=== PATIENT | male | born 1955 | race Caucasian/White ===

== ENCOUNTER 2017-12-01 22:37 | Emergency (ER) | payer MEDICARE, OTHER ==
[~2017-12-01] VITALS: Ht 170.2 cm; Wt 72.8 kg
[~2017-12-01 22:37] MED LIST: CLOZ100 PO; FERR-89 PO; LEVO125T4 PO; PRAV40TA4 PO
[2017-12-01 22:54] LABS: GLUCOSE,POINT OF CARE 138 MG/DL (70-110)
[2017-12-01] MEDS ORDERED: TAMS0.4C32 PO (23:00)
[2017-12-01] MEDS ORDERED: OMEP20 PO (23:00)
[2017-12-01] MEDS ORDERED: LORA2TAB2 PO (23:00)
[2017-12-01 23:22] LABS: BASOPHILS % (AUTO) 0.7 % (0.0-2.0); EOSINOPHILS % (AUTO) 0 % (1.0-6.0); HEMOGLOBIN 13.2 g/dL (13.5-17.5); LYMPHOCYTES # (AUTO) 0.9 K/uL (1.0-4.8); LYMPHOCYTES % (AUTO) 18.1 % (22.0-44.0); MEAN CORPUSCULAR HEMOGLOBIN 29.4 pg (26.0-34.0); MEAN CORPUSCULAR HGB CONC 33.8 G/dL (31.0-37.0); MEAN CORPUSCULAR VOLUME 87 fL (80-100); MONOCYTES # (AUTO) 0.4 K/uL (0.1-1.0); MONOCYTES % (AUTO) 7.9 % (2.0-9.0); NEUTROPHILS # (AUTO) 3.7 K/uL (1.8-7.7); NEUTROPHILS % (AUTO) 73.3 % (40.0-70.0); PLATELET COUNT (AUTO) 178 K/uL (150-450); RED BLOOD CELL COUNT(AUTO) 4.48 MIL/uL (4.50-5.90); RED CELL DISTRIBUTION WIDTH 14.7 % (11.5-14.5)
[2017-12-01 23:32] LABS: ANION GAP 8 mmol/L (8-16); CARBON DIOXIDE 31 mmol/L (22-29); CHLORIDE 101 mmol/L (98-107); CREATININE 1.52 mg/dL (0.60-1.30); GLOMERULAR FILTR. RATE CALC 47 mL/min (>60); GLUCOSE,RANDOM 147 mg/dL (70-110); POTASSIUM 3.6 mmol/L (3.5-5.1); SODIUM SERUM 140 mmol/L (136-145); UREA NITROGEN, BLOOD 15 mg/dL (7-18)
[2017-12-01 23:38] LABS: ALANINE AMINOTRANSFERASE 14 U/L (12-78); ALKALINE PHOSPHATASE 83 U/L (46-116); ASPARTATE AMINOTRANSFERASE 15 U/L (15-37); BILIRUBIN,TOTAL 0.6 mg/dL (0.1-1.0); TOTAL PROTEIN, SERUM 7.7 g/dL (6.4-8.2)
[2017-12-01 23:50] LABS: AMPHET/METH SCREEN,URINE NEGATIVE (NEGATIVE); BARBITURATE SCREEN, URINE NEGATIVE (NEGATIVE); BENZODIAZEPINES SCREEN,URINE NEGATIVE (NEGATIVE); CANNABINOID SCREEN,URINE NEGATIVE (NEGATIVE); COCAINE SCREEN,URINE NEGATIVE (NEGATIVE); METHADONE SCREEN, URINE NEGATIVE (NEGATIVE); OPIATE SCREEN,URINE NEGATIVE (NEGATIVE); PHENCYCLIDINE SCREEN,URINE NEGATIVE (NEGATIVE)
[2017-12-02] MEDS: DiphenhydrAMINE HCL 50 MG/ML VIAL IM ONE (00:34)
[2017-12-02 01:20] VITALS: BP 134/74
== END 2017-12-02 01:20 | disposition home or self-care (01) ==
LOC: EMS 22:38
DX: F20.9 Schizophrenia, unspecified (principal); Z79.899 Other long term (current) drug therapy
CPT/HCPCS: 36415; 70450; 80053; 80307; 82962; 85025; 99285; G0480

== ENCOUNTER 2018-04-15 14:39 | Inpatient (IN) | payer MEDICARE, MEDICAID ==
[~2018-04-15] VITALS: Ht 177.8 cm; Wt 66.9 kg
[~2018-04-15 14:39] MED LIST changes: +LORA2TAB2 PO; +OMEP20 PO; +TAMS0.4C32 PO
[2018-04-15 15:53] VITALS: BP 149/75
[2018-04-15 16:08] VITALS: BP 150/77
[2018-04-15] MEDS: LORazepam 1 MG TABLET PO PRN (16:31)
[2018-04-15] MEDS ORDERED: GuaiFENesin/D-METHORPHAN [SUGAR-FREE] 200-20MG/10 ML SYRUP UDCUP PO PRN (18:45)
[2018-04-15] MEDS ORDERED: MAG HYDROX/AL HYDROX/SIMETH ES 30 ML SUSPENSION UDCUP PO PRN (18:45)
[2018-04-15] MEDS ORDERED: PETROLATUM,WHITE 71 GM JELLY TP PRN (18:45)
[2018-04-15] MEDS ORDERED: LOPERAMIDE HCL 2 MG CAPSULE PO PRN (18:45)
[2018-04-15] MEDS ORDERED: CloNIDine HCL 0.1 MG TABLET PO PRN (18:45)
[2018-04-15] MEDS ORDERED: IBUPROFEN 400 MG TABLET PO PRN (18:45)
[2018-04-15] MEDS ORDERED: MAGNESIUM HYDROXIDE SUSPENSION 30 ML UDCUP PO PRN (18:45)
[2018-04-15] MEDS ORDERED: ONDANSETRON HCL 4 MG TABLET PO PRN (18:45)
[2018-04-15] MEDS ORDERED: NICOTINE 14 MG/24 HOUR PATCH TD PRN (18:45)
[2018-04-15] MEDS ORDERED: ALBUTEROL SULFATE HFA 90 MCG/PUFF 8 GM INHALER IH PRN (18:45)
[2018-04-15] MEDS ORDERED: DOCUSATE SODIUM 100 MG CAPSULE PO PRN (18:45)
[2018-04-15] MEDS ORDERED: ACETAMINOPHEN 325 MG TABLET PO PRN (18:45)
[2018-04-15] MEDS: TAMSULOSIN HCL 0.4 MG CAPSULE PO SCH (21:35)
[2018-04-15] MEDS: ZOLPIDEM TARTRATE 10 MG TABLET PO PRN (21:35)
[2018-04-15] MEDS: PRAVASTATIN SODIUM 40 MG TABLET PO SCH (21:35)
[2018-04-16 00:02] VITALS: BP 141/70
[2018-04-16] MEDS: HALOPERIDOL 5 MG TABLET PO PRN ×3 (00:03→17:41)
[2018-04-16] MEDS: LORazepam 1 MG TABLET PO PRN ×3 (00:03→17:41)
[2018-04-16] MEDS: FERROUS SULFATE 325 MG EC TABLET PO SCH (06:40)
[2018-04-16] MEDS: LEVOTHYROXINE SODIUM 125 MCG TABLET PO SCH (06:40)
[2018-04-16 08:33] LABS: BASOPHILS % (AUTO) 0.4 % (0.0-2.0); EOSINOPHILS % (AUTO) 0.1 % (1.0-6.0); HEMATOCRIT 40.7 % (41-53); HEMOGLOBIN 13.5 g/dL (13.5-17.5); MEAN CORPUSCULAR HEMOGLOBIN 29.2 pg (26.0-34.0); MEAN CORPUSCULAR HGB CONC 33.2 G/dL (31.0-37.0); MEAN CORPUSCULAR VOLUME 88 fL (80-100); MONOCYTES # (AUTO) 0.5 K/uL (0.1-1.0); MONOCYTES % (AUTO) 8.7 % (2.0-9.0); NEUTROPHILS # (AUTO) 4.6 K/uL (1.8-7.7); NEUTROPHILS % (AUTO) 74.8 % (40.0-70.0); PLATELET COUNT (AUTO) 263 K/uL (150-450); RED BLOOD CELL COUNT(AUTO) 4.63 MIL/uL (4.50-5.90); RED CELL DISTRIBUTION WIDTH 14.8 % (11.5-14.5)
[2018-04-16] MEDS: OMEPRAZOLE 20 MG CAPSULE PO SCH (09:01)
[2018-04-16 09:15] LABS: ALBUMIN 4.2 g/dL (3.4-5.0); BILIRUBIN,TOTAL 0.7 mg/dL (0.1-1.0); CALCIUM, TOTAL 10.1 mg/dL (8.8-10.5); CHOL/HDL RATIO 1.8 (4.2-7.3); CREATININE 1.48 mg/dL (0.60-1.30); FREE T4 (FREE THYROXINE) 1.39 ng/dL (0.76-1.46); TOTAL PROTEIN, SERUM 8.5 g/dL (6.4-8.2)
[2018-04-16 09:27] VITALS: BP 140/69
[2018-04-16 18:38] VITALS: BP 140/93
[2018-04-16 20:32] VITALS: BP_SYST 150; BP_SYST 170; BP_DIAS 99
[2018-04-16] MEDS: PRAVASTATIN SODIUM 40 MG TABLET PO SCH (21:32)
[2018-04-16] MEDS: TAMSULOSIN HCL 0.4 MG CAPSULE PO SCH (21:32)
[2018-04-16] MEDS: CloZAPine 100 MG TABLET PO SCH (21:33)
[2018-04-17 01:00] VITALS: BP 138/79
[2018-04-17] MEDS: HALOPERIDOL 5 MG TABLET PO PRN (01:16)
[2018-04-17] MEDS: LORazepam 1 MG TABLET PO PRN ×2 (01:16→09:19)
[2018-04-17] MEDS: ZOLPIDEM TARTRATE 10 MG TABLET PO PRN (02:35)
[2018-04-17] MEDS: LEVOTHYROXINE SODIUM 125 MCG TABLET PO SCH (06:28)
[2018-04-17] MEDS: FERROUS SULFATE 325 MG EC TABLET PO SCH (06:37)
[2018-04-17 06:48] VITALS: BP 159/78
[2018-04-17] MEDS ORDERED: CloZAPine 100 MG TABLET PO SCH (09:00)
[2018-04-17] MEDS: OMEPRAZOLE 20 MG CAPSULE PO SCH (09:19)
[2018-04-17 12:01] VITALS: BP 128/80
[2018-04-17 20:18] VITALS: BP 121/70
[2018-04-17] MEDS: CloZAPine 100 MG TABLET PO SCH (21:00)
[2018-04-17] MEDS: TAMSULOSIN HCL 0.4 MG CAPSULE PO SCH (21:00)
[2018-04-17] MEDS: PRAVASTATIN SODIUM 40 MG TABLET PO SCH (21:00)
== END 2018-04-18 01:27 | disposition short-term general hospital (02) | DRG 885 ==
LOC: B2X 15:32
PROVIDERS: ADMIT Psychiatry & Neurology Child & Adolescent Psychiatry; ATTEND Psychiatry & Neurology Child & Adolescent Psychiatry
DX: F20.9 Schizophrenia, unspecified (principal); G93.41 Metabolic encephalopathy; N17.9 Acute kidney failure, unspecified; K21.9 Gastro-esophageal reflux disease without esophagitis; N40.0 Benign prostatic hyperplasia without lower urinary tract symptoms; E03.9 Hypothyroidism, unspecified; E78.5 Hyperlipidemia, unspecified; D64.9 Anemia, unspecified; F99 Mental disorder, not otherwise specified; R62.50 Unspecified lack of expected normal physiological development in childhood; N18.9 Chronic kidney disease, unspecified
CPT/HCPCS: 83036; 84436; 84439; 84443

== ENCOUNTER 2018-04-17 12:47 | Emergency (ER) | payer OTHER ==
[~2018-04-17] VITALS: Ht 172.7 cm; Wt 70.0 kg
[2018-04-17 14:02] LABS: GLUCOSE,POINT OF CARE 111 MG/DL (70-110)
[2018-04-17 14:27] LABS: BASOPHILS % (AUTO) 0.8 % (0.0-2.0); EOSINOPHILS % (AUTO) 0.3 % (1.0-6.0); HEMATOCRIT 41.4 % (41-53); HEMOGLOBIN 13.6 g/dL (13.5-17.5); LYMPHOCYTES # (AUTO) 1.1 K/uL (1.0-4.8); LYMPHOCYTES % (AUTO) 19.1 % (22.0-44.0); MEAN CORPUSCULAR HEMOGLOBIN 29.3 pg (26.0-34.0); MEAN CORPUSCULAR HGB CONC 32.8 G/dL (31.0-37.0); MEAN CORPUSCULAR VOLUME 89 fL (80-100); MONOCYTES # (AUTO) 0.5 K/uL (0.1-1.0); MONOCYTES % (AUTO) 8.8 % (2.0-9.0); PLATELET COUNT (AUTO) 228 K/uL (150-450); RED BLOOD CELL COUNT(AUTO) 4.63 MIL/uL (4.50-5.90); RED CELL DISTRIBUTION WIDTH 14.9 % (11.5-14.5)
[2018-04-17 14:44] LABS: ANION GAP 12 mmol/L (8-16); CALCIUM, TOTAL 10.2 mg/dL (8.8-10.5); CARBON DIOXIDE 29 mmol/L (22-29); CHLORIDE 106 mmol/L (98-107); CREATININE 1.34 mg/dL (0.60-1.30); GLOMERULAR FILTR. RATE CALC 54 mL/min (>60); GLUCOSE,RANDOM 95 mg/dL (70-110); POTASSIUM 3.9 mmol/L (3.5-5.1); SODIUM SERUM 147 mmol/L (136-145); UREA NITROGEN, BLOOD 31 mg/dL (7-18)
[2018-04-17 14:50] LABS: ALANINE AMINOTRANSFERASE 49 U/L (12-78); ALKALINE PHOSPHATASE 86 U/L (46-116); ASPARTATE AMINOTRANSFERASE 92 U/L (15-37); BILIRUBIN,TOTAL 0.8 mg/dL (0.1-1.0); TOTAL PROTEIN, SERUM 7.8 g/dL (6.4-8.2)
[2018-04-17] MEDS ORDERED: LORazepam 2 MG/ML VIAL IVP ONE (15:00)
[2018-04-17 17:32] LABS: APPEARANCE,URINE CLEAR (CLEAR); BILIRUBIN,URINE NEGATIVE (NEGATIVE); GLUCOSE, URINE (UA) NEGATIVE (NEGATIVE); KETONES,URINE 15 mg/dL (NEGATIVE); LEUKOCYTE ESTERASE ,URINE NEGATIVE (NEGATIVE); NITRATE,URINE NEGATIVE (NEGATIVE); OCCULT BLOOD,URINE NEGATIVE (NEGATIVE); PH,URINE 5.5 (5.0-8.0); PROTEIN,URINE TRACE (NEGATIVE); UROBILINOGEN,URINE 0.2 mg/dL (<=1.0)
[2018-04-17 17:36] LABS: AMPHET/METH SCREEN,URINE NEGATIVE (NEGATIVE); BACTERIA,URINE Rare /HPF (None Seen); BARBITURATE SCREEN, URINE NEGATIVE (NEGATIVE); BENZODIAZEPINES SCREEN,URINE NEGATIVE (NEGATIVE); CANNABINOID SCREEN,URINE NEGATIVE (NEGATIVE); COCAINE SCREEN,URINE NEGATIVE (NEGATIVE); METHADONE SCREEN, URINE NEGATIVE (NEGATIVE); OPIATE SCREEN,URINE NEGATIVE (NEGATIVE); RBC,URINE 0-2 /HPF (0-2); SQUAMOUS EPITHELIAL CELL,UR Few /LPF (None Seen); WBC,URINE 0-2 /HPF (0-5)
[2018-04-17 17:37] LABS: PHENCYCLIDINE SCREEN,URINE NEGATIVE (NEGATIVE)
[2018-04-17] MEDS ORDERED: 0.9% SODIUM CHLORIDE 10 ML SYRINGE IVP PRN ×2 (18:30→18:45)
[2018-04-17] MEDS ORDERED: LEVOFLOXACIN 500 MG/D5% WATER 100 ML IV ONE (18:30)
[2018-04-17] MEDS ORDERED: ACETAMINOPHEN 325 MG TABLET PO PRN (18:45)
[2018-04-17 22:27] VITALS: BP 127/72
== END 2018-04-17 23:29 | disposition other institution (70) ==
LOC: EMS 12:48
DX: J69.0 Pneumonitis due to inhalation of food and vomit (principal); R41.82 Altered mental status, unspecified; E03.9 Hypothyroidism, unspecified; K21.9 Gastro-esophageal reflux disease without esophagitis; F20.9 Schizophrenia, unspecified; Z79.899 Other long term (current) drug therapy
CPT/HCPCS: 36415; 70450; 71045; 80053; 80307; 81001; 82140; 82962; 83605; 85025; 87040; 96365; 96375; 99285; G0480; J1956; J2060

== ENCOUNTER 2019-08-15 22:45 | Inpatient (IN) | payer MEDICARE, OTHER ==
[~2019-08-15] VITALS: Ht 172.7 cm; Wt 65.3 kg
[~2019-08-15 22:45] MED LIST changes: -CLOZ100 PO; +CLOZ100T32 PO; +LORA-1001 PO; -LORA2TAB2 PO; +TAMS-13 PO; -TAMS0.4C32 PO
[2019-08-15] MEDS ORDERED: HALO50VI4 IM (23:01)
[2019-08-16] MEDS ORDERED: TraZODone HCL 50 MG TABLET PO ONE (01:30)
[2019-08-16] MEDS ORDERED: LORazepam 2 MG TABLET PO ONE (01:30)
[2019-08-16 02:24] LABS: BASOPHILS % (AUTO) 0.3 % (0.0-2.0); EOSINOPHILS % (AUTO) 0.3 % (1.0-6.0); HEMATOCRIT 37.5 % (41-53); HEMOGLOBIN 12.5 g/dL (13.5-17.5); LYMPHOCYTES # (AUTO) 0.7 K/uL (1.0-4.8); LYMPHOCYTES % (AUTO) 12.8 % (22.0-44.0); MEAN CORPUSCULAR HEMOGLOBIN 29.6 pg (26.0-34.0); MEAN CORPUSCULAR HGB CONC 33.4 G/dL (31.0-37.0); MEAN CORPUSCULAR VOLUME 89 fL (80-100); MONOCYTES # (AUTO) 0.4 K/uL (0.1-1.0); MONOCYTES % (AUTO) 7.2 % (2.0-9.0); NEUTROPHILS # (AUTO) 4.6 K/uL (1.8-7.7); NEUTROPHILS % (AUTO) 79.4 % (40.0-70.0); PLATELET COUNT (AUTO) 162 K/uL (150-450); RED BLOOD CELL COUNT(AUTO) 4.23 MIL/uL (4.50-5.90); RED CELL DISTRIBUTION WIDTH 14.3 % (11.5-14.5)
[2019-08-16 02:38] LABS: ANION GAP 7 mmol/L (8-16); CALCIUM, TOTAL 9.2 mg/dL (8.8-10.5); CARBON DIOXIDE 30 mmol/L (22-29); CHLORIDE 105 mmol/L (98-107); CREATININE 1.59 mg/dL (0.60-1.30); GLOMERULAR FILTR. RATE CALC 44 mL/min (>60); GLUCOSE,RANDOM 161 mg/dL (70-110); POTASSIUM 3.5 mmol/L (3.5-5.1); SODIUM SERUM 142 mmol/L (136-145); UREA NITROGEN, BLOOD 27 mg/dL (7-18)
[2019-08-16 02:47] LABS: ALANINE AMINOTRANSFERASE 17 U/L (12-78); ALBUMIN 3.9 g/dL (3.4-5.0); ALKALINE PHOSPHATASE 86 U/L (46-116); ASPARTATE AMINOTRANSFERASE 20 U/L (15-37); BILIRUBIN,TOTAL 0.6 mg/dL (0.1-1.0); CREATINE KINASE, TOTAL ONLY 381 U/L (39-308); TOTAL PROTEIN, SERUM 7.5 g/dL (6.4-8.2)
[2019-08-16] MEDS ORDERED: DiphenhydrAMINE HCL 50 MG/ML VIAL IM ONE (04:15)
[2019-08-16] MEDS ORDERED: ZOLPIDEM TARTRATE 10 MG TABLET PO PRN (04:30)
[2019-08-16] MEDS ORDERED: HALOPERIDOL 5 MG TABLET PO PRN (04:30)
[2019-08-16] MEDS ORDERED: PETROLATUM,WHITE 28 GM JELLY TP PRN (08:00)
[2019-08-16] MEDS ORDERED: IBUPROFEN 400 MG TABLET PO PRN (08:00)
[2019-08-16] MEDS ORDERED: MAG HYDROX/AL HYDROX/SIMETH ES 30 ML SUSPENSION UDCUP PO PRN (08:00)
[2019-08-16] MEDS ORDERED: ALBUTEROL SULFATE HFA 90 MCG/PUFF 8 GM INHALER IH PRN (08:00)
[2019-08-16] MEDS ORDERED: GuaiFENesin/D-METHORPHAN [SUGAR-FREE] 200-20MG/10 ML SYRUP UDCUP PO PRN (08:00)
[2019-08-16] MEDS ORDERED: LOPERAMIDE HCL 2 MG CAPSULE PO PRN (08:00)
[2019-08-16] MEDS ORDERED: CloNIDine HCL 0.1 MG TABLET PO PRN (08:00)
[2019-08-16] MEDS ORDERED: DOCUSATE SODIUM 100 MG CAPSULE PO PRN (08:00)
[2019-08-16] MEDS ORDERED: ONDANSETRON HCL 4 MG TABLET PO PRN (08:00)
[2019-08-16] MEDS ORDERED: MAGNESIUM HYDROXIDE SUSPENSION 30 ML UDCUP PO PRN (08:00)
[2019-08-16] MEDS ORDERED: NICOTINE 14 MG/24 HOUR PATCH TD PRN (08:00)
[2019-08-16] MEDS ORDERED: ACETAMINOPHEN 325 MG TABLET PO PRN ×2 (08:00→19:30)
[2019-08-16] MEDS: LORazepam 2 MG TABLET PO PRN ×2 (09:12→15:59)
[2019-08-16 09:32] LABS: APPEARANCE,URINE CLEAR (CLEAR); BILIRUBIN,URINE NEGATIVE (NEGATIVE); GLUCOSE, URINE (UA) NEGATIVE (NEGATIVE); KETONES,URINE TRACE mg/dL (NEGATIVE); LEUKOCYTE ESTERASE ,URINE SMALL (NEGATIVE); NITRATE,URINE NEGATIVE (NEGATIVE); OCCULT BLOOD,URINE NEGATIVE (NEGATIVE); PH,URINE 5.5 (5.0-8.0); PROTEIN,URINE NEGATIVE (NEGATIVE)
[2019-08-16 09:40] LABS: AMPHET/METH SCREEN,URINE NEGATIVE (NEGATIVE); BARBITURATE SCREEN, URINE NEGATIVE (NEGATIVE); BENZODIAZEPINES SCREEN,URINE NEGATIVE (NEGATIVE); CANNABINOID SCREEN,URINE NEGATIVE (NEGATIVE); COCAINE SCREEN,URINE NEGATIVE (NEGATIVE); METHADONE SCREEN, URINE NEGATIVE (NEGATIVE); OPIATE SCREEN,URINE NEGATIVE (NEGATIVE)
[2019-08-16 09:48] LABS: PHENCYCLIDINE SCREEN,URINE NEGATIVE (NEGATIVE)
[2019-08-16 09:55] LABS: RBC,URINE None Seen /HPF (0-2)
[2019-08-16 09:56] LABS: BACTERIA,URINE None Seen /HPF (None Seen)
[2019-08-16] MEDS ORDERED: AZITHROMYCIN 500 MG/NS 250 ML IV ONE (16:30)
[2019-08-16] MEDS ORDERED: CefTRIAXone 1 GM/DEXTROSE 50 ML IV ONE (16:30)
[2019-08-16 16:54] LABS: BASOPHILS % (AUTO) 0.4 % (0.0-2.0); EOSINOPHILS % (AUTO) 2.8 % (1.0-6.0); HEMATOCRIT 38.4 % (41-53); HEMOGLOBIN 12.7 g/dL (13.5-17.5); LYMPHOCYTES # (AUTO) 1.1 K/uL (1.0-4.8); LYMPHOCYTES % (AUTO) 17.3 % (22.0-44.0); MEAN CORPUSCULAR HEMOGLOBIN 29.4 pg (26.0-34.0); MEAN CORPUSCULAR VOLUME 89 fL (80-100); MONOCYTES # (AUTO) 0.5 K/uL (0.1-1.0); NEUTROPHILS # (AUTO) 4.5 K/uL (1.8-7.7); NEUTROPHILS % (AUTO) 71.5 % (40.0-70.0); PLATELET COUNT (AUTO) 158 K/uL (150-450); RED BLOOD CELL COUNT(AUTO) 4.31 MIL/uL (4.50-5.90); RED CELL DISTRIBUTION WIDTH 14.3 % (11.5-14.5)
[2019-08-16 17:12] LABS: LACTIC ACID 1.8 mmol/L (0.4-2.0)
[2019-08-16 17:26] LABS: D-DIMER 0.81 mg/L FEU (0.00-0.50); INR 1.1 (0.9-1.1); PROTHROMBIN TIME 11.3 SEC (9.4-11.6)
[2019-08-16 17:43] LABS: CALCIUM, TOTAL 9.2 mg/dL (8.8-10.5); CREATININE 1.38 mg/dL (0.60-1.30); POTASSIUM 3.5 mmol/L (3.5-5.1)
[2019-08-16 17:44] LABS: INFLUENZA TYPE A NEGATIVE FOR TYPE A (NEGATIVE); INFLUENZA TYPE B NEGATIVE FOR TYPE B (NEGATIVE)
[2019-08-16 18:12] LABS: ALBUMIN 3.8 g/dL (3.4-5.0); BILIRUBIN,TOTAL 0.9 mg/dL (0.1-1.0); C-REACTIVE PROTEIN QUANT 0.58 mg/dL (0.00-0.30); TOTAL PROTEIN, SERUM 7.5 g/dL (6.4-8.2)
[2019-08-16] MEDS ORDERED: SODIUM CHLORIDE 0.9% 250 ML IV ONE (19:00)
[2019-08-16] MEDS ORDERED: HALOPERIDOL LACTATE 5 MG/ML VIAL IM ONE (19:30)
[2019-08-16] MEDS ORDERED: ONDANSETRON HCL 4 MG/2 ML VIAL IVP PRN (19:30)
[2019-08-16] MEDS ORDERED: HALOPERIDOL LACTATE 5 MG/ML VIAL IM SCH (19:30)
[2019-08-16 19:39] VITALS: BP 142/72
[2019-08-16] MEDS ORDERED: SODIUM CHLORIDE 0.9% 100 ML ONE (20:03)
[2019-08-16] MEDS ORDERED: IOVERSOL 320 MG/ML 100 ML VIAL ONE (20:03)
[2019-08-16] MEDS: TAMSULOSIN HCL 0.4 MG CAPSULE PO SCH (21:00)
[2019-08-16] MEDS ORDERED: CloZAPine 100 MG TABLET PO SCH (21:00)
[2019-08-16] MEDS: SODIUM CHLORIDE 0.9% 1,800 ML IV SCH (23:22)
[2019-08-16 23:29] VITALS: BP 141/78
[2019-08-17] MEDS: HEPARIN SODIUM,PORCINE 5,000 UNITS/ML VIAL SQ SCH ×3 (00:50→17:33)
[2019-08-17 04:03] VITALS: BP 106/58
[2019-08-17] MEDS: LEVOTHYROXINE SODIUM 125 MCG TABLET PO SCH (06:30)
[2019-08-17] MEDS: SODIUM CHLORIDE 0.9% 1,800 ML IV SCH (06:38)
[2019-08-17 07:03] LABS: BASOPHILS % (AUTO) 0.7 % (0.0-2.0); EOSINOPHILS % (AUTO) 4.2 % (1.0-6.0); HEMATOCRIT 36.9 % (41-53); HEMOGLOBIN 12.4 g/dL (13.5-17.5); LYMPHOCYTES # (AUTO) 1.1 K/uL (1.0-4.8); LYMPHOCYTES % (AUTO) 24.2 % (22.0-44.0); MEAN CORPUSCULAR HEMOGLOBIN 29.7 pg (26.0-34.0); MEAN CORPUSCULAR HGB CONC 33.5 G/dL (31.0-37.0); MEAN CORPUSCULAR VOLUME 89 fL (80-100); MONOCYTES # (AUTO) 0.3 K/uL (0.1-1.0); MONOCYTES % (AUTO) 6.5 % (2.0-9.0); NEUTROPHILS # (AUTO) 2.9 K/uL (1.8-7.7); NEUTROPHILS % (AUTO) 64.4 % (40.0-70.0); PLATELET COUNT (AUTO) 155 K/uL (150-450); RED BLOOD CELL COUNT(AUTO) 4.16 MIL/uL (4.50-5.90); RED CELL DISTRIBUTION WIDTH 14.4 % (11.5-14.5)
[2019-08-17 07:19] VITALS: BP 116/62
[2019-08-17 07:27] LABS: ALANINE AMINOTRANSFERASE 15 U/L (12-78); ALBUMIN 3.3 g/dL (3.4-5.0); ALKALINE PHOSPHATASE 78 U/L (46-116); ANION GAP 10 mmol/L (8-16); ASPARTATE AMINOTRANSFERASE 24 U/L (15-37); BILIRUBIN,TOTAL 0.8 mg/dL (0.1-1.0); CALCIUM, TOTAL 8.7 mg/dL (8.8-10.5); CARBON DIOXIDE 26 mmol/L (22-29); CHLORIDE 111 mmol/L (98-107); CHOL/HDL RATIO 2.2 (4.2-7.3); CHOLESTEROL 96 mg/dL (131-200); CREATININE 1.06 mg/dL (0.60-1.30); GLOMERULAR FILTR. RATE CALC > 60 mL/min (>60); GLUCOSE,RANDOM 51 mg/dL (70-110); HDL CHOLESTEROL 44 mg/dL (40-60); LDL CHOL (CALC.) 38 mg/dL (0-130); POTASSIUM 4.1 mmol/L (3.5-5.1); SODIUM SERUM 147 mmol/L (136-145); TOTAL PROTEIN, SERUM 6.7 g/dL (6.4-8.2); TRIGLYCERIDES 71 mg/dL (15-150); UREA NITROGEN, BLOOD 22 mg/dL (7-18)
[2019-08-17] MEDS: OMEPRAZOLE 20 MG CAPSULE PO SCH (08:07)
[2019-08-17] MEDS: LORazepam 2 MG TABLET PO PRN (08:07)
[2019-08-17] MEDS: ASPIRIN 81 MG EC TABLET PO SCH (08:07)
[2019-08-17] MEDS: FERROUS SULFATE 325 MG EC TABLET PO SCH (08:07)
[2019-08-17] MEDS ORDERED: PRAVASTATIN SODIUM 40 MG TABLET PO SCH (09:00)
[2019-08-17] MEDS: CloZAPine 100 MG TABLET PO SCH ×2 (09:52→21:00)
[2019-08-17 11:27] VITALS: BP 119/54
[2019-08-17 12:57] LABS: FREE T4 (FREE THYROXINE) 1.45 ng/dL (0.76-1.46); THYROID STIMULATING HORMONE 0.63 uIU/mL (0.36-3.74)
[2019-08-17 15:49] VITALS: BP 132/92
[2019-08-17] MEDS: CefTRIAXone 1 GM/DEXTROSE 50 ML IV SCH (17:33)
[2019-08-17] MEDS: AZITHROMYCIN 500 MG/NS 250 ML IV SCH (19:02)
[2019-08-17 19:45] VITALS: BP 128/74
[2019-08-17] MEDS: TAMSULOSIN HCL 0.4 MG CAPSULE PO SCH (21:00)
[2019-08-18 00:12] VITALS: BP 103/65
[2019-08-18] MEDS: HEPARIN SODIUM,PORCINE 5,000 UNITS/ML VIAL SQ SCH ×4 (01:52→22:59)
[2019-08-18] MEDS: LEVOTHYROXINE SODIUM 125 MCG TABLET PO SCH (05:46)
[2019-08-18 06:54] LABS: BASOPHILS % (AUTO) 0.6 % (0.0-2.0); EOSINOPHILS % (AUTO) 3.4 % (1.0-6.0); HEMOGLOBIN 12.1 g/dL (13.5-17.5); LYMPHOCYTES % (AUTO) 26.2 % (22.0-44.0); MEAN CORPUSCULAR HGB CONC 33.6 G/dL (31.0-37.0); MEAN CORPUSCULAR VOLUME 89 fL (80-100); MONOCYTES # (AUTO) 0.2 K/uL (0.1-1.0); MONOCYTES % (AUTO) 6.2 % (2.0-9.0); NEUTROPHILS # (AUTO) 2.4 K/uL (1.8-7.7); NEUTROPHILS % (AUTO) 63.6 % (40.0-70.0); PLATELET COUNT (AUTO) 155 K/uL (150-450); RED BLOOD CELL COUNT(AUTO) 4.04 MIL/uL (4.50-5.90); RED CELL DISTRIBUTION WIDTH 14.3 % (11.5-14.5)
[2019-08-18 07:23] LABS: ALBUMIN 2.9 g/dL (3.4-5.0); BILIRUBIN,TOTAL 0.6 mg/dL (0.1-1.0); CALCIUM, TOTAL 8.4 mg/dL (8.8-10.5); CREATININE 1.26 mg/dL (0.60-1.30); POTASSIUM 4.1 mmol/L (3.5-5.1); TOTAL PROTEIN, SERUM 6.1 g/dL (6.4-8.2)
[2019-08-18 07:53] LABS: GLUCOMETER DEV NAME(LOC) 5N.3; GLUCOSE,POINT OF CARE 44 MG/DL (70-110)
[2019-08-18 08:30] VITALS: BP 111/53
[2019-08-18] MEDS: ASPIRIN 81 MG EC TABLET PO SCH (08:42)
[2019-08-18] MEDS: CloZAPine 100 MG TABLET PO SCH ×2 (08:42→21:44)
[2019-08-18] MEDS: OMEPRAZOLE 20 MG CAPSULE PO SCH (08:42)
[2019-08-18] MEDS: FERROUS SULFATE 325 MG EC TABLET PO SCH (08:42)
[2019-08-18] MEDS: SODIUM CHLORIDE 0.9% 1,800 ML IV SCH (08:57)
[2019-08-18 09:08] LABS: GLUCOMETER DEV NAME(LOC) 5N.3; GLUCOSE,POINT OF CARE 91 MG/DL (70-110)
[2019-08-18] MEDS: LORazepam 2 MG TABLET PO PRN (10:56)
[2019-08-18 12:35] VITALS: BP 136/68
[2019-08-18] MEDS ORDERED: ALPRAZolam 0.25 MG TABLET PO ONE (15:45)
[2019-08-18] MEDS ORDERED: LORazepam 2 MG/ML VIAL IVP ONE ×2 (16:15→16:30)
[2019-08-18] MEDS: CefTRIAXone 1 GM/DEXTROSE 50 ML IV SCH (16:38)
[2019-08-18 19:58] VITALS: BP 136/76
[2019-08-18] MEDS: AZITHROMYCIN 500 MG/NS 250 ML IV SCH (20:01)
[2019-08-18] MEDS: TAMSULOSIN HCL 0.4 MG CAPSULE PO SCH (21:44)
[2019-08-19 03:42] VITALS: BP 135/74
[2019-08-19] MEDS: LEVOTHYROXINE SODIUM 125 MCG TABLET PO SCH (05:58)
[2019-08-19 07:15] LABS: BASOPHILS % (AUTO) 0.3 % (0.0-2.0); EOSINOPHILS % (AUTO) 2.3 % (1.0-6.0); HEMATOCRIT 39.7 % (41-53); HEMOGLOBIN 12.9 g/dL (13.5-17.5); LYMPHOCYTES # (AUTO) 1.1 K/uL (1.0-4.8); LYMPHOCYTES % (AUTO) 24.7 % (22.0-44.0); MEAN CORPUSCULAR HGB CONC 32.6 G/dL (31.0-37.0); MEAN CORPUSCULAR VOLUME 89 fL (80-100); MONOCYTES # (AUTO) 0.3 K/uL (0.1-1.0); MONOCYTES % (AUTO) 7.1 % (2.0-9.0); NEUTROPHILS # (AUTO) 2.9 K/uL (1.8-7.7); NEUTROPHILS % (AUTO) 65.6 % (40.0-70.0); PLATELET COUNT (AUTO) 168 K/uL (150-450); RED BLOOD CELL COUNT(AUTO) 4.45 MIL/uL (4.50-5.90); RED CELL DISTRIBUTION WIDTH 13.9 % (11.5-14.5)
[2019-08-19 07:30] LABS: CARBON DIOXIDE 28 mmol/L (22-29); CHLORIDE 105 mmol/L (98-107); SODIUM SERUM 141 mmol/L (136-145)
[2019-08-19 07:31] LABS: ALANINE AMINOTRANSFERASE 15 U/L (12-78); ALBUMIN 3.2 g/dL (3.4-5.0); ALKALINE PHOSPHATASE 87 U/L (46-116); ANION GAP 8 mmol/L (8-16); ASPARTATE AMINOTRANSFERASE 18 U/L (15-37); BILIRUBIN,TOTAL 0.4 mg/dL (0.1-1.0); CALCIUM, TOTAL 8.9 mg/dL (8.8-10.5); CREATININE 0.99 mg/dL (0.60-1.30); GLOMERULAR FILTR. RATE CALC > 60 mL/min (>60); GLUCOSE,RANDOM 109 mg/dL (70-110); TOTAL PROTEIN, SERUM 6.8 g/dL (6.4-8.2); UREA NITROGEN, BLOOD 12 mg/dL (7-18)
[2019-08-19] MEDS: FERROUS SULFATE 325 MG EC TABLET PO SCH (08:00)
[2019-08-19] MEDS: HEPARIN SODIUM,PORCINE 5,000 UNITS/ML VIAL SQ SCH ×2 (08:00→17:12)
[2019-08-19 08:13] VITALS: BP 117/57
[2019-08-19] MEDS: ASPIRIN 81 MG EC TABLET PO SCH (10:14)
[2019-08-19] MEDS: OMEPRAZOLE 20 MG CAPSULE PO SCH (10:14)
[2019-08-19] MEDS: CloZAPine 100 MG TABLET PO SCH ×2 (10:14→22:04)
[2019-08-19 11:13] VITALS: BP 144/76
[2019-08-19 15:11] VITALS: BP 127/72
[2019-08-19] MEDS: CefTRIAXone 1 GM/DEXTROSE 50 ML IV SCH (17:12)
[2019-08-19 17:42] LABS: GLUCOMETER DEV NAME(LOC) 5N.1; GLUCOSE,POINT OF CARE 101 MG/DL (70-110)
[2019-08-19 17:47] LABS: GLUCOMETER DEV NAME(LOC) 5S.2A; GLUCOSE,POINT OF CARE 114 MG/DL (70-110)
[2019-08-19 20:00] VITALS: BP 122/68
[2019-08-19] MEDS: AZITHROMYCIN 500 MG/NS 250 ML IV SCH (22:04)
[2019-08-19] MEDS: TAMSULOSIN HCL 0.4 MG CAPSULE PO SCH (22:04)
[2019-08-19 23:22] VITALS: BP 128/70
[2019-08-20] MEDS: HEPARIN SODIUM,PORCINE 5,000 UNITS/ML VIAL SQ SCH ×3 (00:54→17:10)
[2019-08-20 04:01] LABS: GLUCOMETER DEV NAME(LOC) 5S.2A; GLUCOSE,POINT OF CARE 86 MG/DL (70-110)
[2019-08-20 04:33] VITALS: BP 130/74
[2019-08-20] MEDS: LEVOTHYROXINE SODIUM 125 MCG TABLET PO SCH (06:48)
[2019-08-20 07:03] LABS: ANION GAP 0 mmol/L (8-16); CALCIUM, TOTAL 8.8 mg/dL (8.8-10.5); CARBON DIOXIDE 36 mmol/L (22-29); CHLORIDE 105 mmol/L (98-107); CREATININE 0.87 mg/dL (0.60-1.30); GLOMERULAR FILTR. RATE CALC > 60 mL/min (>60); GLUCOSE,RANDOM 103 mg/dL (70-110); POTASSIUM 4.1 mmol/L (3.5-5.1); SODIUM SERUM 141 mmol/L (136-145); UREA NITROGEN, BLOOD 9 mg/dL (7-18)
[2019-08-20 07:21] LABS: BASOPHILS % (AUTO) 0.6 % (0.0-2.0); EOSINOPHILS % (AUTO) 2.9 % (1.0-6.0); HEMOGLOBIN 13.2 g/dL (13.5-17.5); LYMPHOCYTES # (AUTO) 0.8 K/uL (1.0-4.8); LYMPHOCYTES % (AUTO) 19.1 % (22.0-44.0); MEAN CORPUSCULAR HEMOGLOBIN 28.8 pg (26.0-34.0); MEAN CORPUSCULAR HGB CONC 32.3 G/dL (31.0-37.0); MEAN CORPUSCULAR VOLUME 89 fL (80-100); MONOCYTES # (AUTO) 0.3 K/uL (0.1-1.0); MONOCYTES % (AUTO) 7.6 % (2.0-9.0); NEUTROPHILS # (AUTO) 2.9 K/uL (1.8-7.7); NEUTROPHILS % (AUTO) 69.8 % (40.0-70.0); PLATELET COUNT (AUTO) 170 K/uL (150-450); RED BLOOD CELL COUNT(AUTO) 4.59 MIL/uL (4.50-5.90); RED CELL DISTRIBUTION WIDTH 13.9 % (11.5-14.5)
[2019-08-20 08:12] VITALS: BP 131/79
[2019-08-20] MEDS: OMEPRAZOLE 20 MG CAPSULE PO SCH (08:41)
[2019-08-20] MEDS: FERROUS SULFATE 325 MG EC TABLET PO SCH (08:42)
[2019-08-20] MEDS: ASPIRIN 81 MG EC TABLET PO SCH (08:42)
[2019-08-20] MEDS: CloZAPine 100 MG TABLET PO SCH ×2 (08:42→21:36)
[2019-08-20 11:24] VITALS: BP 110/69
[2019-08-20 15:10] VITALS: BP 129/84
[2019-08-20] MEDS: CefTRIAXone 1 GM/DEXTROSE 50 ML IV SCH (17:10)
[2019-08-20] MEDS: LORazepam 2 MG TABLET PO PRN (19:07)
[2019-08-20] MEDS: AZITHROMYCIN 500 MG/NS 250 ML IV SCH (19:49)
[2019-08-20 20:00] VITALS: BP 144/75
[2019-08-20] MEDS: TAMSULOSIN HCL 0.4 MG CAPSULE PO SCH (21:36)
[2019-08-21] VITALS: BP 122/75
[2019-08-21] MEDS: HEPARIN SODIUM,PORCINE 5,000 UNITS/ML VIAL SQ SCH ×3 (00:04→15:44)
[2019-08-21 05:22] VITALS: BP 148/81
[2019-08-21] MEDS: LEVOTHYROXINE SODIUM 125 MCG TABLET PO SCH (06:41)
[2019-08-21] MEDS: CloZAPine 100 MG TABLET PO SCH ×2 (08:36→21:56)
[2019-08-21] MEDS: OMEPRAZOLE 20 MG CAPSULE PO SCH (08:36)
[2019-08-21] MEDS: FERROUS SULFATE 325 MG EC TABLET PO SCH (08:36)
[2019-08-21] MEDS: ASPIRIN 81 MG EC TABLET PO SCH (08:36)
[2019-08-21 09:06] VITALS: BP 119/79
[2019-08-21 11:48] VITALS: BP 120/76
[2019-08-21 15:28] VITALS: BP 101/71
[2019-08-21] MEDS: CefTRIAXone 1 GM/DEXTROSE 50 ML IV SCH (16:45)
[2019-08-21 20:20] VITALS: BP 134/86
[2019-08-21] MEDS: AZITHROMYCIN 500 MG/NS 250 ML IV SCH (21:55)
[2019-08-21] MEDS: TAMSULOSIN HCL 0.4 MG CAPSULE PO SCH (21:56)
[2019-08-22 00:13] VITALS: BP 131/80
[2019-08-22] MEDS: HEPARIN SODIUM,PORCINE 5,000 UNITS/ML VIAL SQ SCH ×3 (00:47→16:41)
[2019-08-22] MEDS: LEVOTHYROXINE SODIUM 125 MCG TABLET PO SCH (06:26)
[2019-08-22 06:29] VITALS: BP 124/91
[2019-08-22 07:31] VITALS: BP 121/76
[2019-08-22 07:54] LABS: BASOPHILS % (AUTO) 0.9 % (0.0-2.0); EOSINOPHILS % (AUTO) 4.2 % (1.0-6.0); HEMATOCRIT 39.5 % (41-53); HEMOGLOBIN 13.2 g/dL (13.5-17.5); LYMPHOCYTES # (AUTO) 1.1 K/uL (1.0-4.8); MEAN CORPUSCULAR HEMOGLOBIN 29.6 pg (26.0-34.0); MEAN CORPUSCULAR HGB CONC 33.5 G/dL (31.0-37.0); MEAN CORPUSCULAR VOLUME 89 fL (80-100); MONOCYTES # (AUTO) 0.3 K/uL (0.1-1.0); MONOCYTES % (AUTO) 7.3 % (2.0-9.0); NEUTROPHILS # (AUTO) 2.4 K/uL (1.8-7.7); NEUTROPHILS % (AUTO) 60.6 % (40.0-70.0); PLATELET COUNT (AUTO) 201 K/uL (150-450); RED BLOOD CELL COUNT(AUTO) 4.46 MIL/uL (4.50-5.90); RED CELL DISTRIBUTION WIDTH 14.4 % (11.5-14.5)
[2019-08-22 08:00] LABS: ANION GAP 3 mmol/L (8-16); CALCIUM, TOTAL 9.1 mg/dL (8.8-10.5); CARBON DIOXIDE 35 mmol/L (22-29); CHLORIDE 104 mmol/L (98-107); CREATININE 1.06 mg/dL (0.60-1.30); GLOMERULAR FILTR. RATE CALC > 60 mL/min (>60); GLUCOSE,RANDOM 105 mg/dL (70-110); POTASSIUM 4.2 mmol/L (3.5-5.1); SODIUM SERUM 142 mmol/L (136-145); UREA NITROGEN, BLOOD 15 mg/dL (7-18)
[2019-08-22] MEDS: ASPIRIN 81 MG EC TABLET PO SCH (11:04)
[2019-08-22] MEDS: CloZAPine 100 MG TABLET PO SCH ×2 (11:04→20:22)
[2019-08-22] MEDS: FERROUS SULFATE 325 MG EC TABLET PO SCH (11:04)
[2019-08-22] MEDS: OMEPRAZOLE 20 MG CAPSULE PO SCH (11:05)
[2019-08-22 11:37] VITALS: BP 135/77
[2019-08-22 16:59] VITALS: BP 139/52
[2019-08-22] MEDS: CefTRIAXone 1 GM/DEXTROSE 50 ML IV SCH (17:55)
[2019-08-22 19:24] VITALS: BP 131/66
[2019-08-22] MEDS: LORazepam 2 MG TABLET PO PRN (20:21)
[2019-08-22] MEDS: AZITHROMYCIN 500 MG/NS 250 ML IV SCH (20:21)
[2019-08-22] MEDS: TAMSULOSIN HCL 0.4 MG CAPSULE PO SCH (20:22)
[2019-08-22] MEDS ORDERED: SODIUM CHLORIDE 0.9% 250 ML IV ONE (21:14)
[2019-08-23] MEDS: HEPARIN SODIUM,PORCINE 5,000 UNITS/ML VIAL SQ SCH ×2 (00:13→09:10)
[2019-08-23 04:33] VITALS: BP 138/80
[2019-08-23] MEDS: LEVOTHYROXINE SODIUM 125 MCG TABLET PO SCH (06:37)
[2019-08-23 07:45] VITALS: BP 144/86
[2019-08-23] MEDS: FERROUS SULFATE 325 MG EC TABLET PO SCH (09:10)
[2019-08-23] MEDS: ASPIRIN 81 MG EC TABLET PO SCH (09:10)
[2019-08-23] MEDS: OMEPRAZOLE 20 MG CAPSULE PO SCH (09:10)
[2019-08-23] MEDS: CloZAPine 100 MG TABLET PO SCH (09:10)
[2019-08-23 11:05] VITALS: BP 115/72
[2019-08-29] MEDS ORDERED: HALOPERIDOL DECANOATE 50 MG/ML VIAL IM SCH (09:00)
== END 2019-08-23 13:30 | DRG 91 ==
LOC: EMS 22:46 → 5N 08-16 04:33 → 3EX 08-16 04:33 → UNDOADMIN 08-16 04:33 → 5N 08-16 18:15 → 5S 08-22 18:25
PROVIDERS: ADMIT Internal Medicine; ATTEND Internal Medicine
DX: G92 Toxic encephalopathy (principal); J15.9 Unspecified bacterial pneumonia; N17.9 Acute kidney failure, unspecified; F20.0 Paranoid schizophrenia; E86.0 Dehydration; D64.9 Anemia, unspecified; F41.9 Anxiety disorder, unspecified; R62.50 Unspecified lack of expected normal physiological development in childhood; F79 Unspecified intellectual disabilities; K21.9 Gastro-esophageal reflux disease without esophagitis; Z79.899 Other long term (current) drug therapy; Z79.891 Long term (current) use of opiate analgesic; Z79.01 Long term (current) use of anticoagulants; Z20.828 Contact with and (suspected) exposure to other viral communicable diseases
CPT/HCPCS: 70450; 70551; 71275; 82728; 83605; 83615; 84145; 84439; 84443; 85379; 85384; 86140; 87040; 87086; 87804; 93005; 97162; 97530; G0480; J0456; J0696; J1200; J1630; J1644; J2060; J7030; J7050; Q0162; 36415-L1; 36415-TC; 71045-TC; 80061-TC; U0003-CS

== ENCOUNTER 2019-10-11 23:56 | Emergency (ER) | payer MEDICARE, OTHER ==
[~2019-10-11] VITALS: Ht 170.2 cm; Wt 70.5 kg
[~2019-10-11 23:56] MED LIST changes: +HALO50VI4 IM; -LORA-1001 PO
[2019-10-12] MEDS ORDERED: ENOX40DI9 SQ (01:10)
[2019-10-12] MEDS ORDERED: ATOR20TA86 PO (01:10)
[2019-10-12 01:50] LABS: BASOPHILS % (AUTO) 0.9 % (0.0-2.0); EOSINOPHILS % (AUTO) 2.4 % (1.0-6.0); HEMATOCRIT 33.5 % (41-53); HEMOGLOBIN 11.3 g/dL (13.5-17.5); LYMPHOCYTES # (AUTO) 1.6 K/uL (1.0-4.8); LYMPHOCYTES % (AUTO) 30.8 % (22.0-44.0); MEAN CORPUSCULAR HEMOGLOBIN 30.2 pg (26.0-34.0); MEAN CORPUSCULAR HGB CONC 33.7 G/dL (31.0-37.0); MEAN CORPUSCULAR VOLUME 90 fL (80-100); MONOCYTES # (AUTO) 0.5 K/uL (0.1-1.0); MONOCYTES % (AUTO) 10.3 % (2.0-9.0); NEUTROPHILS % (AUTO) 55.6 % (40.0-70.0); PLATELET COUNT (AUTO) 299 K/uL (150-450); RED BLOOD CELL COUNT(AUTO) 3.74 MIL/uL (4.50-5.90); RED CELL DISTRIBUTION WIDTH 15.2 % (11.5-14.5)
[2019-10-12 01:55] LABS: ANION GAP 5 mmol/L (8-16); CALCIUM, TOTAL 8.7 mg/dL (8.8-10.5); CARBON DIOXIDE 28 mmol/L (22-29); CHLORIDE 105 mmol/L (98-107); CREATININE 1.43 mg/dL (0.60-1.30); GLOMERULAR FILTR. RATE CALC 50 mL/min (>60); GLUCOSE,RANDOM 93 mg/dL (70-110); POTASSIUM 4.4 mmol/L (3.5-5.1); SODIUM SERUM 138 mmol/L (136-145); UREA NITROGEN, BLOOD 21 mg/dL (7-18)
[2019-10-12 02:01] LABS: ALANINE AMINOTRANSFERASE 22 U/L (12-78); ALKALINE PHOSPHATASE 65 U/L (46-116); ASPARTATE AMINOTRANSFERASE 17 U/L (15-37); BILIRUBIN,TOTAL 0.2 mg/dL (0.1-1.0); TOTAL PROTEIN, SERUM 6.8 g/dL (6.4-8.2)
[2019-10-12] MEDS ORDERED: MORPHINE SULFATE 4 MG/ML SYRINGE IM ONE (02:15)
[2019-10-12 03:02] LABS: LIPASE 95 U/L (73-393)
[2019-10-12 05:26] VITALS: BP 122/82
[2019-10-12] MEDS ORDERED: MAGNESIUM CITRATE 300 ML ORAL SOLUTION PO ONE (05:45)
[2019-10-12] MEDS ORDERED: AMOX TR/POT CLAV 875 MG/125 MG TABLET PO ONE (05:45)
== END 2019-10-12 06:11 | disposition home or self-care (01) ==
LOC: EMS 23:56
DX: K51.30 Ulcerative (chronic) rectosigmoiditis without complications (principal); F25.9 Schizoaffective disorder, unspecified; E03.9 Hypothyroidism, unspecified; Z79.899 Other long term (current) drug therapy
CPT/HCPCS: 36415; 74176; 80053; 83690; 85025; 96372; 99284; G0480; J2270